=== PATIENT | male | born 1995 | race Hispanic/Latino ===

== ENCOUNTER 2022-06-13 20:04 | Emergency (ER) | payer BC ==
[~2022-06-13] VITALS: Ht 182.9 cm; Wt 105.4 kg
[2022-06-13 20:21] VITALS: BP 141/91
[2022-06-13] MEDS ORDERED: IBUPROFEN 600 MG TABLET PO ONE (22:00)
== END 2022-06-13 22:24 | disposition home or self-care (01) ==
LOC: EDH 20:04
DX: B34.9 Viral infection, unspecified (principal); Z20.822 Contact with and (suspected) exposure to COVID-19
CPT/HCPCS: 99283; 87635; 87880; 87804 ×2; C9803